=== PATIENT | female | born 1950 | race Caucasian/White ===

== ENCOUNTER → 2017-11-09 | Day surgery (SDC) | payer OTHER ==
[~2017-11-09] MED LIST: PROPOFOL 500 MG/50 ML BTL IV ONE
--- NOTE | 2017-11-09 14:32 | GIPROC ---
[facility] [address], [address] EGD PROCEDURE REPORT EXAM DATE: 11/09/2017 PATIENT NAME: Nicky Mckeon MR #: [id number] BIRTHDATE: 1950 ATTENDING: Christopher Castellano MD ORDER #: [id number] SUPERVISOR CURED MEATS: Jem Jeffries RN STATUS: outpatient INDICATIONS: The patient is a 67 yr old female here for an EGD due to history of esophageal reflux PROCEDURE PERFORMED: EGD w/ biopsy MEDICATIONS: None and Per Anesthesia. TOPICAL ANESTHETIC: CONSENT: The patient understands the risks and benefits of the procedure and understands that these risks include, but are not limited to: sedation, allergic reaction, infection, perforation and/or bleeding. Alternative means of evaluation and treatment include, among others: physical exam, x-rays, and/or surgical intervention. The patient elects to proceed with this endoscopic procedure. medical equipment was checked for proper function. Hand hygiene and appropriate measures for infection prevention was taken. After the risks, benefits and alternatives of the procedure were thoroughly explained, Informed consent was verified, confirmed and timeout was successfully executed by the treatment team. The patient was anesthetized with topical anesthesia and the EC-3490Li ([id number]) endoscope was introduced through the mouth and advanced to the second portion of the duodenum. Retroflexed views revealed no abnormalities The gastroscope was then slowly withdrawn and removed. ESOPHAGUS: There was LA Class B esophagitis noted. A biopsy was performed using cold forceps. Sample sent for histology. STOMACH: There was erythematous moderate gastritis in the gastric antrum. A biopsy was performed using cold forceps. Sample sent for histology. DUODENUM: The duodenal mucosa appeared normal in the bulb and second portion of the duodenum. ADVERSE EVENTS: There were no complications. IMPRESSIONS: 1. There was LA Class B esophagitis noted; biopsy was performed 2. There was erythematous gastritis in the gastric antrum; biopsy was performed 3. Normal duodenal mucosa in the bulb and second portion of the duodenum 4. Retroflexed views revealed no abnormalities RECOMMENDATIONS: 1. Await biopsy results. Biopsy results will not be ready for 7-10 days. If you don't hear from us in two weeks, call our office for biopsy results. 2. Anti-reflux regimen 3. Continue PPI PATIENT CONDITION: stable DISPOSITION: Home REPEAT EXAM: Return 1 year EGD pending biopsy results Christopher Castellano MD eSigned: Christopher Castellano MD 11/09/2017 2:31 PM cc: Parker Ross PATIENT NAME: Nicky Mckeon MR#: [id number]
--- NOTE | 2017-11-09 14:43 | GIPROC ---
[facility] [address] [facility] [address] [facility], [address] COLONOSCOPY PROCEDURE REPORT EXAM DATE: 11/09/2017 PATIENT NAME: Nicky Mckeon MR #: [id number] BIRTHDATE: 1950 ENDOSCOPIST: Christopher Castellano MD ORDER #: [id number] MANAGED CARE NURSE: Jem Jeffries RN STATUS: outpatient INDICATIONS: The patient is a 67 yr old female here for a colonoscopy due to high risk patient with personal history of colonic polyps PROCEDURE PERFORMED: Colonoscopy with biopsy MEDICATIONS: None and Per Anesthesia. PREP QUALITY: The Vantage Bowel Prep Score was Right colon 2, Mid colon 3, and Left colon 3. Total = 8. ESTIMATED BLOOD LOSS: None CONSENT: The patient understands the risks and benefits of the procedure and understands that these risks include, but are not limited to: sedation, allergic reaction, infection, perforation and/or bleeding. Alternative means of evaluation and treatment include, among others: physical exam, x-rays, and/or surgical intervention. The patient elects to proceed with this endoscopic procedure. medical equipment was checked for proper function. Hand hygiene and appropriate measures for infection prevention was taken. After the risks, benefits and alternatives of the procedure were thoroughly explained, Informed consent was verified, confirmed and timeout was successfully executed by the treatment team. A digital exam revealed external hemorrhoids The EC-3490Li ([id number]) endoscope was introduced through the anus and advanced to the cecum, which was identified by both the appendix and ileocecal valve. The instrument was then slowly withdrawn as the colon was fully examined. COLON FINDINGS: Moderate diverticulosis was noted in the sigmoid colon. Two polypoid shaped flat polyps ranging between 3-5mm in size were found in the rectum. Multiple biopsies were performed using cold forceps. Sub mucosal lesion 1 x 2 cm. biopsied. Retroflexed views revealed internal hemorrhoids and Retroflexed views revealed medium internal hemorrhoids The scope was then completely withdrawn from the patient and the procedure terminated. PROCEDURE WITHDRAWAL TIME:6minutes ADVERSE EVENTS: There were no complications. IMPRESSIONS: 1. Moderate diverticulosis was noted in the sigmoid colon 2. Two flat polyps ranging between 3-5mm in size were found in the rectum; multiple biopsies were performed using cold forceps 3. Sub mucosal lesion 1 x 2 cm. biopsied 4. Retroflexed views revealed internal hemorrhoids 5. Retroflexed views revealed medium internal hemorrhoids 6. Revealed external hemorrhoids RECOMMENDATIONS: 1. Await biopsy results. Biopsy results will not be ready for 7-10 days. If you don't hear from us in two weeks, call our office for results. 2. Continue surveillance 3. Yearly hemoccult 4. No seeds, nuts and popcorn in diet 5. Benefiber 2 tsp daily 6. Follow-up: [facility] 4 week(s) RECALL: Return 1 year Colonoscopy, pending biopsy results Christopher Castellano MD eSigned: Christopher Castellano MD 11/09/2017 2:43 PM cc: Rafiq Muller [facility] PATIENT NAME: Nicky Mckeon MR#: [id number]
== END | disposition home or self-care (01) ==
LOC: ESDC 11:41
PROVIDERS: ATTEND Internal Medicine Gastroenterology
DX: K57.90 Diverticulosis of intestine, part unspecified, without perforation or abscess without bleeding (principal); Z86.010 Personal history of colon polyps; K64.4 Residual hemorrhoidal skin tags; K62.1 Rectal polyp; K64.8 Other hemorrhoids; K21.9 Gastro-esophageal reflux disease without esophagitis; K20.9 Esophagitis, unspecified; K29.70 Gastritis, unspecified, without bleeding
CPT/HCPCS: 00740; 00810; 43239; 45380; 88305; 88312; J3010